=== PATIENT | male | born 1960 | race Caucasian/White ===

== ENCOUNTER → 2020-05-12 | Day surgery (SDC) | payer OTHER ==
[~2020-05-12] MED LIST: ADVIL200 M1 PO; CRESTOR10 MG PO; PERCOCET 5-3251 EACH PO; PRINIVIL10 MG PO
== END | disposition home or self-care (01) ==
LOC: FAS 08:50
DX: M16.11 Unilateral primary osteoarthritis, right hip (principal); I10 Essential (primary) hypertension; Z79.899 Other long term (current) drug therapy
CPT/HCPCS: 76000; J1040; J2250; J2704; J3010; J7120; Q9967

== ENCOUNTER → 2020-09-22 | Day surgery (SDC) | payer OTHER ==
[~2020-09-22] VITALS: Ht 177.8 cm; Wt 113.4 kg
== END | disposition home or self-care (01) ==
LOC: FAS 11:23
DX: M16.11 Unilateral primary osteoarthritis, right hip (principal); M76.891 Other specified enthesopathies of right lower limb, excluding foot
CPT/HCPCS: 76000; J1040; J2001; J2250; J7120; Q9967

== ENCOUNTER → 2021-02-16 | Day surgery (SDC) | payer OTHER ==
[~2021-02-16] VITALS: Ht 177.8 cm; Wt 113.4 kg
[~2021-02-16] MED LIST changes: +VOLTAREN **OUT50 MG PO
== END | disposition home or self-care (01) ==
LOC: FAS 06:10
DX: M16.11 Unilateral primary osteoarthritis, right hip (principal); M17.11 Unilateral primary osteoarthritis, right knee
CPT/HCPCS: 76000; J1040; J2250; J2704; J7120; Q9967

== ENCOUNTER 2021-04-07 11:50 | Inpatient (IN) | payer OTHER ==
[~2021-04-07] VITALS: Ht 177.8 cm; Wt 111.3 kg
[2021-04-07 13:25] LABS: BASOPHIL 0.1 % (0-2); EOSINOPHIL 0 % (0-5); HCT 43.3 % (42.0-52.0); HGB 14.7 g/dl (13.2-18.0); LYMPHOCYTE 10.9 % (15-48); MCH 31.5 pg (25.0-31.0); MCHC 33.9 g/dL (32.0-36.0); MCV 92.9 fL (78.0-100.0); MONOCYTE 5.9 % (0-12); MPV 9.7 fL (6.0-9.5); NEUTROPHIL 81.7 % (41-80); NRBC 0; PLT 159 K/uL (150-400); RBC 4.66 M/uL (4.70-6.00); RDW 12.3 % (11.5-14.0); WBC 7.2 K/uL (4.0-10.5)
[2021-04-07 14:20] LABS: ALBUMIN 3.4 g/dL (3.4-5.0); BILIRUBIN - TOTAL 0.9 mg/dL (0.2-1.0); BUN/CREAT RATIO (CALC) 17.6 RATIO; C-REACTIVE PROTEIN 10.5 mg/dL (<=0.90); CREATININE 1.02 mg/dL (0.67-1.17); GLOBULIN (CALCULATION) 3.3 g/dL; POTASSIUM 4.1 mmol/L (3.5-5.1); TOTAL PROTEIN 6.7 g/dL (6.4-8.2)
[2021-04-07 15:58] LABS: BILIRUBIN 1+ mg/dL (NEGATIVE); BLOOD NEGATIVE Ery/uL (NEGATIVE); CLARITY CLEAR (CLEAR); COLOR YELLOW (YELLOW); GLUCOSE (U) NORMAL (NORMAL); LEUKOCYTES NEGATIVE Leu/uL (NEGATIVE); NITRITE NEGATIVE (NEGATIVE); PROTEIN 2+ mg/dL (NEGATIVE); SPECIFIC GRAVITY >=1.030 (1.001-1.030)
[2021-04-07 16:11] LABS: BACTERIA TRACE; MUCOUS TRACE; SQUAMOUS EPITHELIAL CELLS RARE
[2021-04-08 06:48] LABS: BASOPHIL 0.3 % (0-2); EOSINOPHIL 0 % (0-5); HCT 37.1 % (42.0-52.0); HGB 12.7 g/dl (13.2-18.0); LYMPHOCYTE 9.2 % (15-48); MCH 31.8 pg (25.0-31.0); MCHC 34.2 g/dL (32.0-36.0); MCV 92.8 fL (78.0-100.0); MONOCYTE 5.9 % (0-12); MPV 9.8 fL (6.0-9.5); NEUTROPHIL 83.1 % (41-80); NRBC 0; PLT 164 K/uL (150-400); WBC 7.4 K/uL (4.0-10.5)
[2021-04-08 07:38] LABS: BUN/CREAT RATIO (CALC) 20.8 RATIO; CREATININE 1.01 mg/dL (0.67-1.17); POTASSIUM 4.2 mmol/L (3.5-5.1)
[2021-04-08 19:05] LABS: IRON % SATURATION 14.5 %SAT (20-50)
[2021-04-09 05:57] LABS: BASOPHIL 0.2 % (0-2); EOSINOPHIL 0 % (0-5); HCT 39.8 % (42.0-52.0); HGB 13.5 g/dl (13.2-18.0); LYMPHOCYTE 13.1 % (15-48); MCH 31.4 pg (25.0-31.0); MCHC 33.9 g/dL (32.0-36.0); MCV 92.6 fL (78.0-100.0); MONOCYTE 6.7 % (0-12); MPV 9.8 fL (6.0-9.5); NEUTROPHIL 78.1 % (41-80); NRBC 0; PLT 211 K/uL (150-400); RDW 12.1 % (11.5-14.0)
[2021-04-09 06:00] LABS: WBC 13.2 K/uL (4.0-10.5)
[2021-04-09 06:42] LABS: BILIRUBIN - TOTAL 0.6 mg/dL (0.2-1.0); BUN/CREAT RATIO (CALC) 22.2 RATIO; CREATININE 0.9 mg/dL (0.67-1.17); GLOBULIN (CALCULATION) 3.5 g/dL; POTASSIUM 3.9 mmol/L (3.5-5.1); TOTAL PROTEIN 6.5 g/dL (6.4-8.2)
[2021-04-10 06:18] LABS: BASOPHIL 0.2 % (0-2); EOSINOPHIL 0 % (0-5); HCT 37.3 % (42.0-52.0); HGB 12.5 g/dl (13.2-18.0); LYMPHOCYTE 15.6 % (15-48); MCH 31.6 pg (25.0-31.0); MCHC 33.5 g/dL (32.0-36.0); MCV 94.2 fL (78.0-100.0); MONOCYTE 8.5 % (0-12); MPV 9.6 fL (6.0-9.5); NEUTROPHIL 73.1 % (41-80); NRBC 0; PLT 183 K/uL (150-400); RBC 3.96 M/uL (4.70-6.00); RDW 12.1 % (11.5-14.0)
[2021-04-10 06:37] LABS: ALBUMIN 2.7 g/dL (3.4-5.0); BILIRUBIN - TOTAL 0.6 mg/dL (0.2-1.0); BUN/CREAT RATIO (CALC) 20.7 RATIO; CREATININE 0.87 mg/dL (0.67-1.17); GLOBULIN (CALCULATION) 3.2 g/dL; POTASSIUM 4.6 mmol/L (3.5-5.1); TOTAL PROTEIN 5.9 g/dL (6.4-8.2)
[2021-04-11 07:06] LABS: BASOPHIL 0.6 % (0-2); EOSINOPHIL 0.1 % (0-5); HCT 39.8 % (42.0-52.0); HGB 13.5 g/dl (13.2-18.0); LYMPHOCYTE 12.8 % (15-48); MCHC 33.9 g/dL (32.0-36.0); MCV 94.3 fL (78.0-100.0); MONOCYTE 8.4 % (0-12); MPV 9.5 fL (6.0-9.5); NEUTROPHIL 72.7 % (41-80); NRBC 0; PLT 222 K/uL (150-400); RBC 4.22 M/uL (4.70-6.00); RDW 12.1 % (11.5-14.0)
[2021-04-11 07:08] LABS: WBC 10.9 K/uL (4.0-10.5)
[2021-04-11 07:32] LABS: ALBUMIN 2.8 g/dL (3.4-5.0); BILIRUBIN - TOTAL 0.8 mg/dL (0.2-1.0); BUN/CREAT RATIO (CALC) 16.9 RATIO; CREATININE 0.89 mg/dL (0.67-1.17); GLOBULIN (CALCULATION) 3.5 g/dL; POTASSIUM 4.9 mmol/L (3.5-5.1); TOTAL PROTEIN 6.3 g/dL (6.4-8.2)
[2021-04-12 06:06] LABS: BASOPHIL 0.7 % (0-2); EOSINOPHIL 0.3 % (0-5); HCT 37.2 % (42.0-52.0); HGB 12.8 g/dl (13.2-18.0); LYMPHOCYTE 10.9 % (15-48); MCH 31.6 pg (25.0-31.0); MCHC 34.4 g/dL (32.0-36.0); MCV 91.9 fL (78.0-100.0); MONOCYTE 8.6 % (0-12); MPV 9.7 fL (6.0-9.5); NEUTROPHIL 71.8 % (41-80); NRBC 0.2; PLT 247 K/uL (150-400); RBC 4.05 M/uL (4.70-6.00); RDW 11.9 % (11.5-14.0)
[2021-04-12 06:07] LABS: WBC 12.2 K/uL (4.0-10.5)
[2021-04-12 06:35] LABS: ALBUMIN 2.5 g/dL (3.4-5.0); BILIRUBIN - TOTAL 0.7 mg/dL (0.2-1.0); BUN/CREAT RATIO (CALC) 20.3 RATIO; CREATININE 0.79 mg/dL (0.67-1.17); GLOBULIN (CALCULATION) 3.3 g/dL; POTASSIUM 4.3 mmol/L (3.5-5.1); TOTAL PROTEIN 5.8 g/dL (6.4-8.2)
[2021-04-12] MEDS ORDERED: ATROVENT HFA12.9 GM INH ×2 (09:40→11:30)
[2021-04-12] MEDS ORDERED: DEXAMETHASONE 2M2 MG PO (09:40)
[2021-04-12] MEDS ORDERED: FOLIC ACID1 MG PO (09:40)
[2021-04-12] MEDS ORDERED: PROVENTIL INH ×2 (09:40→11:30)
== END 2021-04-12 11:34 | disposition home or self-care (01) | DRG 177 ==
LOC: FER 11:50 → FMS 22:04 → FER 22:04 → FMS 22:55
PROVIDERS: Emergency Medicine; Family Medicine; ADMIT Internal Medicine
PROC: XW033F6 Introduction of Bamlanivimab Monoclonal Antibody into Peripheral Vein, Percutaneous Approach, New Technology Group 6 (ICD-10-PCS; principal; 2021-04-07)
PROC: XW033E6 Introduction of Etesevimab Monoclonal Antibody into Peripheral Vein, Percutaneous Approach, New Technology Group 6 (ICD-10-PCS; 2021-04-07)
PROC: 8E0ZXY6 Isolation (ICD-10-PCS; 2021-04-07)
PROC: XW033E5 Introduction of Remdesivir Anti-infective into Peripheral Vein, Percutaneous Approach, New Technology Group 5 (ICD-10-PCS; 2021-04-07)
PROC: XW0DXM6 Introduction of Baricitinib into Mouth and Pharynx, External Approach, New Technology Group 6 (ICD-10-PCS; 2021-04-08)
DX: U07.1 COVID-19 (principal); J12.82 Pneumonia due to coronavirus disease 2019; J96.01 Acute respiratory failure with hypoxia; N17.9 Acute kidney failure, unspecified; D50.9 Iron deficiency anemia, unspecified; I10 Essential (primary) hypertension; Z23 Encounter for immunization; E78.5 Hyperlipidemia, unspecified; M16.11 Unilateral primary osteoarthritis, right hip; Z90.49 Acquired absence of other specified parts of digestive tract; Z98.890 Other specified postprocedural states; Z90.89 Acquired absence of other organs; Z82.0 Family history of epilepsy and other diseases of the nervous system
CPT/HCPCS: 36415; 36600; 71250; 71275; 80048; 80053; 81001; 82607; 82728; 82803; 83036; 83540; 83550; 83615; 83880; 85025; 85379; 86140; 94640; C9399; J1100; J1650; J1885; J2916; J7030; J7050; J8540; M0245; Q0245; Q9967; U0002

== ENCOUNTER → 2021-06-02 | Day surgery (SDC) | payer OTHER ==
[~2021-06-02] VITALS: Ht 177.8 cm; Wt 113.5 kg
[~2021-06-02] MED LIST changes: +ATROVENT HFA12.9 GM INH; +DEXAMETHASONE 2M2 MG PO; +DICLOFENAC PO; +FOLIC ACID1 MG PO; +PROVENTIL INH
== END | disposition home or self-care (01) ==
LOC: FAS 07:01
DX: K29.60 Other gastritis without bleeding (principal); K57.30 Diverticulosis of large intestine without perforation or abscess without bleeding; D50.9 Iron deficiency anemia, unspecified; I10 Essential (primary) hypertension; E78.00 Pure hypercholesterolemia, unspecified; G89.29 Other chronic pain; M25.559 Pain in unspecified hip; Z86.16 Personal history of COVID-19; Z79.1 Long term (current) use of non-steroidal anti-inflammatories (NSAID); Z79.899 Other long term (current) drug therapy
CPT/HCPCS: J2704; J7120

== ENCOUNTER 2021-07-13 05:27 | Day surgery (SDC) | payer OTHER ==
[~2021-07-13] VITALS: Ht 178 cm; Wt 118.0 kg
[2021-07-13] MEDS ORDERED: ACETAMINOPHEN500 M1 PO (05:46)
--- NOTE | 2021-07-13 14:40 | NUR ---
PT HAD A RATHR THIS DATE. PT WILL D/C HOME. PT REQUESTS [facility] OUTPT [facility]ERAPY. FIRST APPT IS 07/15/21 @ 11:00 A[facility] TO DELIVER A ROLLING WALKER AND 06/29.
[2021-07-14 07:05] LABS: BASOPHIL 0.1 % (0-2); EOSINOPHIL 0.1 % (0-5); HCT 31.5 % (42.0-52.0); HGB 10.6 g/dl (13.2-18.0); MCH 31.7 pg (25.0-31.0); MCHC 33.7 g/dL (32.0-36.0); MCV 94.3 fL (78.0-100.0); MONOCYTE 8.9 % (0-12); MPV 10.1 fL (6.0-9.5); NEUTROPHIL 79.3 % (41-80); NRBC 0; PLT 168 K/uL (150-400); RBC 3.34 M/uL (4.70-6.00); RDW 12.3 % (11.5-14.0); WBC 14.5 K/uL (4.0-10.5)
[2021-07-14 08:15] LABS: BUN/CREAT RATIO (CALC) 18.9 RATIO; CREATININE 0.9 mg/dL (0.67-1.17); POTASSIUM 4.8 mmol/L (3.5-5.1)
[2021-07-14] MEDS ORDERED: ASPIRIN81 MG PO (08:53)
[2021-07-14] MEDS ORDERED: FEOSOL325 MG PO (08:53)
== END 2021-07-14 11:02 | disposition home or self-care (01) ==
LOC: FAS 05:27 → FOR 07:00 → FAS 07:00 → FMS 07:42 → FAS 07-14 11:02
PROVIDERS: Orthopaedic Surgery
DX: M16.11 Unilateral primary osteoarthritis, right hip (principal); I10 Essential (primary) hypertension; E78.5 Hyperlipidemia, unspecified; Z79.899 Other long term (current) drug therapy
CPT/HCPCS: 36415; 73501; 80048; 85025; 86850; 86900; 86901; 94010; 97110; 97162; 97165; 97530-GP; 97535; C1776; J0171; J0697; J1100; J1170; J1885; J2250; J2270; J2405; J2704; J2795; J3010; J7120